=== PATIENT | female | born 1935 | race Caucasian/White ===

== ENCOUNTER 2016-12-29 08:54 | Day surgery (SDC) | payer MEDICARE, BC ==
[2016-12-29] MEDS ORDERED: Lactated Ringers 1,000 ML IV SCH (09:30)
[2016-12-29] MEDS ORDERED: Propofol 200 MG/20 ML SDV ONE ×2 (09:49→11:31)
[2016-12-29] MEDS ORDERED: fentaNYL 100 MCG/2 ML SDV ONE (09:50)
[2016-12-29 13:03] VITALS: BP 97/71
--- NOTE | 2016-12-30 08:23 | OR ---
DATE OF PROCEDURE: 12/29/2016 PREOPERATIVE DIAGNOSIS: History of colon cancer. POSTOPERATIVE DIAGNOSES: Diverticulosis and history of colon cancer. PROCEDURE: Colonoscopy to the ileotransverse colon anastomosis. ANESTHESIA: IV anesthesia with monitored anesthesia care. INDICATION: This 81-year-old white female is referred for a colonoscopy because of a history of colon cancer. She underwent a right hemicolectomy four years ago. Her last colonoscopic exam was done then three years ago. I counseled her for the procedure, including risks and alternatives and she gave her informed consent to proceed. DESCRIPTION OF PROCEDURE: The patient was placed in the left lateral decubitus position. IV anesthesia was administered by the Anesthesia Service. Time-out was held. A rectal exam was performed, which was unremarkable. The flexible video Olympus colonoscope was introduced through her anus, up her rectum, and out her colon all way to the ileotransverse colon anastomosis. En route, we saw multiple left-sided diverticula. There was no bleeding or inflammation associated with any of them. Once the anastomosis was reached, the scope was slowly withdrawn examining the mucosa throughout. No additional mucosal abnormalities were noted. No neoplastic lesions were seen. The scope was retroflexed in the rectum with the distal rectum appearing unremarkable. The scope was straightened and removed. She tolerated the procedure well. Jace Hughes MD /[id number]
== END 2016-12-29 13:05 | disposition home or self-care (01) ==
LOC: JP.SDS 08:54
PROVIDERS: ATTEND Surgery
DX: Z12.11 Encounter for screening for malignant neoplasm of colon (principal); K57.30 Diverticulosis of large intestine without perforation or abscess without bleeding; Z90.49 Acquired absence of other specified parts of digestive tract; E78.5 Hyperlipidemia, unspecified; E03.9 Hypothyroidism, unspecified; Z88.8 Allergy status to other drugs, medicaments and biological substances
CPT/HCPCS: 45378; J2704; J7120; J3010

== ENCOUNTER 2019-07-26 10:11 | Emergency (ER) | payer MEDICARE, BC ==
[2019-07-26 10:29] VITALS: BP 121/61; PULSE 87
--- NOTE | 2019-07-26 10:58 | EDM.PDOC ---
ED HPI GENERAL MEDICAL PROBLEM - General Chief Complaint: Respiratory Problem Stated Complaint: CHEST PAIN. CLINIC SENT Time Seen by Provider: 07/26/19 10:45 Source of Information: Reports: Patient History Limitations: Reports: No Limitations - History of Present Illness INITIAL COMMENTS - FREE TEXT/NARRATIVE: 84-year-old female who 26 hours ago had an upper abdominal and substernal chest pain that radiated up in her neck after eating breakfast. No shortness of breath. No diaphoresis. It lasted most of the day, this morning she still has just a small lump like sensation in her throat so she called the clinic to be checked and they sent her to the emergency room. Duration: Hour(s): (26 hours ago) Location: Reports: Neck, Chest Associated Symptoms: Denies: Cough, Shortness of Breath Chest Pain Score (Numeric/FACES): 2 - Related Data Allergies Allergy/AdvReac Type Severity Reaction Status Date / Time alendronate sodium Allergy Cannot Verified 12/29/16 09:33 [From Fosamax] Remember Estrogens Allergy Cannot Verified 12/29/16 09:33 Remember levothyroxine sodium Allergy Cannot Verified 12/29/16 09:33 Remember nicotine polacrilex Allergy Itching Verified 12/29/16 09:33 [From Nicorette] potassium Allergy Cannot Verified 12/29/16 09:33 Remember atorvastatin calcium AdvReac Muscle Verified 12/29/16 09:33 [From Lipitor] Aches bupropion HCl AdvReac Dizziness Verified 12/29/16 09:33 [From Wellbutrin] fentanyl AdvReac Confusion Verified 09/16/16 07:13 simvastatin [From Zocor] AdvReac Muscle Verified 09/16/16 07:13 Aches Home Meds: Home Meds Acetaminophen [Tylenol Extra Strength] 500 mg PO ASDIRECTED PRN 01/31/14 [ History] Cholecalciferol (Vitamin D3) [Vitamin D3] 2,000 unit PO DAILY 01/31/14 [History] Vitamin B Complex [B Complex] 1 each PO DAILY 01/31/14 [History] Aspirin [Adult Low Dose Aspirin EC] 81 mg PO ASDIRECTED PRN 06/20/15 [History] Cyanocobalamin (Vitamin B-12) [B-12] 500 mcg PO DAILY 06/20/15 [History] Liothyronine [Cytomel] 25 mcg PO DAILY 06/20/15 [History] Multivitamin [Multi-Vitamin Daily] 1 each PO DAILY 06/20/15 [History] Folic Acid 0.4 mg PO DAILY 07/02/15 [History] Past Medical History HEENT History: Reports: Cataract, Impaired Vision Other Respiratory History: Spot on left lower lung that they are watching. Gastrointestinal History: Reports: Colon Polyp, GI Bleed DAIRY HUSBANDMAN History: Reports: Musculoskeletal History: Reports: Osteoarthritis Psychiatric History: Reports: Depression Endocrine/Metabolic History: Reports: Hypothyroidism Hematologic History: Reports: B12 Deficiency, Blood Transfusion(s) Oncologic (Cancer) History: Reports: Colon Dermatologic History: Reports: Eczema - Infectious Disease History Infectious Disease History: Reports: Chicken Pox, Measles, Mumps - Past Surgical History Head Surgeries/Procedures: Reports: None HEENT Surgical History: Reports: Cataract Surgery GI Surgical History: Reports: Colonoscopy, EGD, Other (See Below) Female Surgical History: Reports: Section Endocrine Surgical History: Reports: None Musculoskeletal Surgical History: Reports: None Oncologic Surgical History: Reports: None Social & Family History - Family History Family Medical History: Noncontributory - Tobacco Use Smoking Status *Q: Light Tobacco Smoker Years of Tobacco use: 60 Packs/Tins Daily: 0.5 - Caffeine Use Caffeine Use: Reports: Coffee - Recreational Drug Use Recreational Drug Use: No ED ROS GENERAL - Review of Systems Review Of Systems: See Below Constitutional: Denies: Fever, Chills, Malaise Respiratory: Reports: Shortness of Breath (chronic and stable) Cardiovascular: Reports: Chest Pain GI/Abdominal: Reports: Abdominal Pain (Epigastric area). Denies: Nausea, Vomiting Skin: Reports: No Symptoms ED EXAM, GENERAL - Physical Exam Exam: See Below Exam Limited By: No Limitations General Appearance: Alert, No Apparent Distress Throat/Mouth: Normal Inspection Respiratory/Chest: No Respiratory Distress, Lungs Clear, Other (A few chronic sounding crackles in the bases bilaterally) Cardiovascular: Regular Rate, Rhythm GI/Abdominal: Non-Tender Extremities: Normal Inspection. No: Pedal Edema Neurological: Alert, Oriented Psychiatric: Normal Affect, Normal Mood Skin Exam: Warm, Dry Course - Vital Signs Last Recorded V/S: Last Vital Signs Temp 96.4 F 07/26/19 10:29 Pulse 87 07/26/19 10:29 Resp 16 07/26/19 10:29 BP 121/61 07/26/19 10:29 Pulse Ox 99 07/26/19 10:29 - Orders/Labs/Meds Labs: Laboratory Tests 07/26/19 Range/Units 10:58 Troponin I < 0.017 (0.000-0.056) ng/mL - Re-Assessments/Exams Free Text/Narrative Re-Assessment/Exam: 07/26/19 12:00 A two-view chest x-ray and troponin were obtained. The x-ray shows some COPD but no infiltrate or pneumothorax. Troponin is 0. Explained to the patient that this was likely esophageal pain and unlikely cardiac with this presentation especially with a negative troponin. Symptoms have all but gone away so she is willing to give this another day or 2 and will return if worsening. Departure - Departure Time of Disposition: 12:08 Disposition: Home, Self-Care 01 Clinical Impression: Atypical chest pain - Discharge Information Instructions: Nonspecific Chest Pain Referrals: Corbin Steele MD [Primary Care Provider] - Forms: ED Department Discharge Care Plan Goals: Continue any current medications, activity as tolerated and return anytime if worsening such as increased shortness of breath or pain.
--- NOTE | 2019-07-26 11:41 | CRLCR ---
INDICATION: DYSPNEACHEST CT WO SENT FROM 07-02-2019 TECHNIQUE: Chest 2 views. COMPARISON: CT chest 07/02/19 FINDINGS: Cardiovascular and mediastinum: Heart size and vasculature are normal in caliber and appearance. Mediastinum is within normal limits. Lungs and pleural spaces: Lungs are clear. No sign of infiltrate or mass. No sign of pleural effusion. No pneumothorax. Bones and soft tissues: No significant findings. IMPRESSION: Unremarkable chest. Dictated by: Alexsander Lawler MD @ 07/26/2019 11:39:49 (Electronically Signed)
== END 2019-07-26 12:08 | disposition home or self-care (01) ==
LOC: JP.ED 10:11
DX: R07.89 Other chest pain (principal); E03.9 Hypothyroidism, unspecified; F17.210 Nicotine dependence, cigarettes, uncomplicated; Z88.8 Allergy status to other drugs, medicaments and biological substances; Z79.82 Long term (current) use of aspirin; Z79.890 Hormone replacement therapy
CPT/HCPCS: 36415; 71046; 84484; 99285-25

== ENCOUNTER 2020-03-06 07:27 | Day surgery (SDC) | payer MEDICARE, BC ==
[2020-03-06] MEDS ORDERED: Dextrose 5%-Lactated Ringers 1,000 ML IV SCH (08:15)
[2020-03-06] MEDS ORDERED: Propofol 200 MG/20 ML SDV ONE (09:27)
[2020-03-06 11:06] VITALS: BP 126/77; PULSE 83
--- NOTE | 2020-03-10 14:10 | OR ---
DATE OF PROCEDURE: 03/06/2020 SURGEON: Hever Segundo MD PREOPERATIVE DIAGNOSIS: History of colon carcinoma with strong family history of colon carcinoma. POSTOPERATIVE DIAGNOSES: 1. History of colon carcinoma with strong family history of colon carcinoma. 2. Recurrent neoplasia. 3. Uncomplicated left colonic diverticulosis. OPERATIVE PROCEDURE: Flexible colonoscopy. ANESTHESIA: IV sedation. INDICATION FOR PROCEDURE: This is an 84-year-old female presenting for followup colonoscopy. She has a history of right hemicolectomy done in 2012 and has had no evident recurrence. Of note, she has a strong family history of colon carcinoma with 4 siblings also having had colon carcinoma. Plan is to proceed with flexible colonoscopy with biopsies and polypectomy as indicated. Potential risks including bleeding and perforation were discussed, and the patient wishes to proceed. DETAILS OF PROCEDURE: The patient was taken to the operating room and placed in a left lateral decubitus position. IV sedation was administered, after which the initial digital rectal exam was performed and was unremarkable. Colonoscope was then passed into the rectum with retroflexion revealing uncomplicated hemorrhoidal columns. Scope was then passed to the level of the ileocolic anastomosis and to that level the patient was noted to have some uncomplicated left colonic diverticulosis. Otherwise, no areas of colitis and no signs of neoplasia/recurrent polyp formation. Scope was then withdrawn. The above findings reconfirmed. The procedure was concluded. The patient was taken to the recovery room in satisfactory condition. Given the patient's personal and family history of colon carcinoma, would recommend a repeat colonoscopy in 3 years if her health otherwise remains reasonably good at that point. Hever Segundo MD /[id number]
== END 2020-03-06 11:21 | disposition home or self-care (01) ==
LOC: JP.SDS 07:27
PROVIDERS: ATTEND Surgery
DX: Z12.11 Encounter for screening for malignant neoplasm of colon (principal); K64.9 Unspecified hemorrhoids; K57.30 Diverticulosis of large intestine without perforation or abscess without bleeding; F17.200 Nicotine dependence, unspecified, uncomplicated; Z80.0 Family history of malignant neoplasm of digestive organs; Z98.890 Other specified postprocedural states; Z85.038 Personal history of other malignant neoplasm of large intestine; Z90.49 Acquired absence of other specified parts of digestive tract
CPT/HCPCS: G0105; J2704; J7121

== ENCOUNTER 2023-07-11 08:05 | Day surgery (SDC) | payer MEDICARE, BC ==
[2023-07-11] MEDS ORDERED: ceFAZolin 2 GM in Premix Bag 1 BAG IV ONE (09:00)
[2023-07-11] MEDS: Dextrose 5%-Lactated Ringers 1,000 ML IV SCH (09:10)
[2023-07-11] MEDS ORDERED: fentaNYL 100 MCG/2 ML SDV ONE (09:49)
[2023-07-11] MEDS ORDERED: Propofol 200 MG/20 ML SDV ONE ×2 (09:49→10:30)
[2023-07-11] MEDS ORDERED: Lactated Ringers 0 ML ONE (10:03)
[2023-07-11] MEDS: Bacitracin Oint 1 GM U/D Packet ONE (12:46)
[2023-07-11] MEDS: Lidocaine 1% with EPINEPHrine 1:100,000 20 ML MDV INJECT ONE (12:46)
[2023-07-11] MEDS: Bupivacaine 0.5% 50 ML MDV INJECT ONE (12:46)
[2023-07-11] MEDS ORDERED: Bupivacaine 0.5% 50 ML MDV ONE (14:00)
[2023-07-11] MEDS ORDERED: Lidocaine 1% with EPINEPHrine 1:100,000 50 ML MDV ONE (14:00)
[2023-07-11 14:06] VITALS: BP 104/57; PULSE 73
== END 2023-07-11 14:15 | disposition home or self-care (01) ==
LOC: JP.SDS 08:05
PROVIDERS: ATTEND Surgery
DX: L72.0 Epidermal cyst (principal); L82.0 Inflamed seborrheic keratosis; L90.5 Scar conditions and fibrosis of skin; L90.9 Atrophic disorder of skin, unspecified; L57.8 Other skin changes due to chronic exposure to nonionizing radiation; L85.9 Epidermal thickening, unspecified; L08.89 Other specified local infections of the skin and subcutaneous tissue; E03.9 Hypothyroidism, unspecified; F17.200 Nicotine dependence, unspecified, uncomplicated; Z88.5 Allergy status to narcotic agent; Z88.8 Allergy status to other drugs, medicaments and biological substances; Z85.038 Personal history of other malignant neoplasm of large intestine
CPT/HCPCS: J2704; J3010; J3490; J7120; J7121